=== PATIENT | female | born 1960 | race Caucasian/White ===

== ENCOUNTER 2022-03-27 18:03 | Emergency (ER) | payer BC ==
[~2022-03-27] VITALS: Ht 160 cm; Wt 50.8 kg
[2022-03-27 19:05] VITALS: BP 114/71
[2022-03-27] MEDS ORDERED: NAPR-1009 PO (19:32)
--- NOTE | 2022-03-27 20:10 | NUR ---
Patient discharged to home in stable condition. Written and verbal after care instructions given. Patient verbalizes understanding of instruction. Pt ambulatory with a steady gait
== END 2022-03-27 20:10 | disposition home or self-care (01) ==
LOC: ER 18:20
DX: S93.601A Unspecified sprain of right foot, initial encounter (principal); Z79.1 Long term (current) use of non-steroidal anti-inflammatories (NSAID); X50.1XXA Overexertion from prolonged static or awkward postures, initial encounter; Y93.89 Activity, other specified; Y92.89 Other specified places as the place of occurrence of the external cause; Y99.8 Other external cause status
CPT/HCPCS: 73630-TC